=== PATIENT | male | born 2000 | race Caucasian/White ===

== ENCOUNTER 2021-05-23 09:30 | Inpatient (IN) | payer OTHER ==
[2021-05-23 10:36] LABS: ALBUMIN 4.4 g/dl (3.4-5.0); BILIRUBIN,TOTAL 0.8 mg/dl (0.2-1); CALCIUM 9.6 mg/dl (8.5-10); CREATININE 0.8 mg/dl (0.55-1.3); TOT PROT 7.2 g/dl (6.4-8.2)
[2021-05-23] MEDS ORDERED: LACTATED RINGERS SOLUTION 1,000 ML/1,000 ML INFUS.BAG IV STA (11:56)
[2021-05-23] MEDS ORDERED: LACTATED RINGERS SOLUTION 1000 ML INFUS.BAG IV ONE ×2 (13:08→15:00)
[2021-05-23] MEDS ORDERED: ACETAMINOPHEN 500 MG TABLET (FP) PO ONE (14:45)
[2021-05-23] MEDS ORDERED: ACETAMINOPHEN 325 MG TABLET (FP) ONE (14:47)
[2021-05-23] MEDS ORDERED: LACTATED RINGERS SOLUTION 1,000 ML/1,000 ML INFUS.BAG IV SCH ×2 (17:00→20:45)
[2021-05-23] MEDS ORDERED: LIDOCAINE HCL 2% (20ML MULTI-DOSE VIAL) ONE (20:24)
[2021-05-23 23:36] VITALS: BMI 33.4
[2021-05-24 09:30] LABS: CALCIUM 9.3 mg/dl (8.5-10); CREATININE 0.8 mg/dl (0.55-1.3)
[2021-05-24 09:36] LABS: BILIRUBIN,TOTAL 0.3 mg/dl (0.2-1); TOT PROT 6.5 g/dl (6.4-8.2)
[2021-05-24] MEDS ORDERED: SODIUM CHLORIDE 1,000 ML IV SCH (10:45)
[2021-05-24] MEDS: ENOXAPARIN NA (PORCINE) 40 MG/0.4 ML DISP.SYRIN SQ SCH (11:00)
[2021-05-24] MEDS: SODIUM CHLORIDE 1,000 ML IV SCH (11:10)
[2021-05-24 11:52] LABS: BASO % 0.9 % (0-2.0); EOS % 2.6 % (0-4.5); HEMATOCRIT 44.9 % (35.4-49); HEMOGLOBIN 14.9 GM/dL (11.7-16.9); LYMPH % 33.1 % (8-40); MCH 28.3 pg (25.7-33.7); MCHC 33.3 g/dl (32.0-35.9); MEAN CELL VOLUME 84.9 fl (80-96); MEAN PLT VOLUME 8.7 fl (7.5-11.1); MONO % 7.1 % (3.8-10.2); NEUT % 56.3 % (42.8-82.8); PLATELET COUNT 295 10^3/uL (134-434); RBC 5.29 M/mm3 (4.00-5.60); RDW 13.1 % (11.9-15.9); WHITE BLOOD COUNT 5.1 K/mm3 (4.0-10.0)
[2021-05-24 12:07] LABS: SARS-CoV-2 NAA Not Detected (Not Detected)
[2021-05-24 20:52] LABS: EPITHELIAL CELLS RARE /hpf
[2021-05-25] MEDS ORDERED: SODIUM CHLORIDE 500 ML IV STA (00:55)
[2021-05-25 09:29] LABS: ALBUMIN 3.7 g/dl (3.4-5.0); BILIRUBIN,TOTAL 0.5 mg/dl (0.2-1)
[2021-05-25] MEDS: ENOXAPARIN NA (PORCINE) 40 MG/0.4 ML DISP.SYRIN SQ SCH (10:15)
[2021-05-25] MEDS: SODIUM CHLORIDE 1,000 ML IV SCH (10:45)
[2021-05-25 13:10] LABS: CALCIUM 8.7 mg/dl (8.5-10); CREATININE 0.7 mg/dl (0.55-1.3); MAGNESIUM 1.7 mg/dL (1.8-2.4)
[2021-05-25] MEDS ORDERED: SODIUM CHLORIDE 0.9% 500 ML INFUS.BAG IV ONE (13:30)
[2021-05-25] MEDS ORDERED: MAGNESIUM 1GM/D5W 100ML - 100 ML IVPB IVPB ONE (13:45)
[2021-05-25 15:16] LABS: COCAINE, UR NEGATIVE (NEGATIVE); METHADONE, UR NEGATIVE (NEGATIVE); OPIATES, URI NEGATIVE (NEGATIVE); PHENCYCLIDINE,URINE NEGATIVE (NEGATIVE); URINE AMPHETAMINES NEGATIVE (NEGATIVE); URINE BARBITURATES NEGATIVE (NEGATIVE); URINE BENZODIAZEPINES NEGATIVE (NEGATIVE)
[2021-05-26 10:08] LABS: ALBUMIN 3.9 g/dl (3.4-5.0); BILIRUBIN,TOTAL 0.5 mg/dl (0.2-1); TOT PROT 6.6 g/dl (6.4-8.2)
[2021-05-26] MEDS: ENOXAPARIN NA (PORCINE) 40 MG/0.4 ML DISP.SYRIN SQ SCH (11:06)
[2021-05-26] MEDS ORDERED: MAGNESIUM OXIDE 400 MG TABLET (FP) PO ONE (11:33)
[2021-05-26] MEDS: SODIUM CHLORIDE 1,000 ML IV SCH (12:12)
[2021-05-27 06:20] VITALS: BP 128/81; PULSE 80; TEMP 97.8
[2021-05-27 07:57] LABS: ALBUMIN 3.9 g/dl (3.4-5.0); BILIRUBIN,TOTAL 0.5 mg/dl (0.2-1); CALCIUM 9.1 mg/dl (8.5-10); CREATININE 0.8 mg/dl (0.55-1.3); MAGNESIUM 1.7 mg/dL (1.8-2.4); TOT PROT 6.4 g/dl (6.4-8.2)
[2021-05-27] MEDS: SODIUM CHLORIDE 1,000 ML IV SCH (08:05)
[2021-05-27] MEDS: ENOXAPARIN NA (PORCINE) 40 MG/0.4 ML DISP.SYRIN SQ SCH (09:56)
== END 2021-05-27 11:57 | disposition home or self-care (01) | DRG 351 ==
LOC: FER 09:30 → EDBD 09:30 → FM/S 17:14
PROVIDERS: ADMIT Internal Medicine; ATTEND Nurse Practitioner Acute Care
DX: M62.82 Rhabdomyolysis (principal); R31.9 Hematuria, unspecified; R20.2 Paresthesia of skin; M79.601 Pain in right arm; M79.602 Pain in left arm
CPT/HCPCS: 36415; 80048; 80053; 80076; 80307; 81003; 81015; 82550; 82553; 83735; 83874; 85025; 87426; 99285-25; C9803; U0003; U0005

== ENCOUNTER 2022-03-14 21:00 | Observation (INO) | payer OTHER ==
[2022-03-14 22:39] LABS: HEMOGLOBIN 14.7 G/dL (11.7-16.9); MCH 29.4 pg (25.7-33.7); MCHC 35.1 g/dl (32.0-35.9); MEAN CELL VOLUME 83.7 fl (80-96); MEAN PLT VOLUME 8.1 fl (7.5-11.1); PLATELET COUNT 270.1 10^3/uL (134-434); RBC 5.02 10^6/uL (4.00-5.60); WHITE BLOOD COUNT 5.6 10^3/uL (4.0-10.8)
[2022-03-14 22:46] LABS: ALBUMIN 4.2 g/dl (3.4-5.0); BILIRUBIN,TOTAL 0.4 mg/dl (0.2-1); CALCIUM 9.4 mg/dl (8.5-10); TOT PROT 6.9 g/dl (6.4-8.2)
[2022-03-14] MEDS ORDERED: SODIUM CHLORIDE 1,000 ML IV STA (23:16)
[2022-03-14] MEDS ORDERED: SODIUM CHLORIDE 1,000 ML IV SCH ×3 (23:30→23:58)
[2022-03-15] MEDS ORDERED: ACETAMINOPHEN 1000 MG/100 ML BAG IVPB PRN (00:03)
[2022-03-15 02:53] VITALS: BMI 33.0
[2022-03-15 08:22] LABS: PH,URINE 6.5 (5.0-8.0); URINE APPEARANCE CLEAR; URINE BILIRUBIN NEGATIVE (NEGATIVE); URINE COLOR YELLOW; URINE GLUCOSE (UA) NEGATIVE (NEGATIVE); URINE KETONE NEGATIVE (NEGATIVE); URINE PROTEIN NEGATIVE (NEGATIVE)
[2022-03-15 08:23] LABS: URINE LEUK ESTERASE NEGATIVE (NEGATIVE); URINE NITRITE NEGATIVE (NEGATIVE); URINE UROBILINOGEN 0.2 mg/dL (0.2-1.0)
[2022-03-15 09:15] LABS: CALCIUM 8.7 mg/dl (8.5-10); CREATININE 0.8 mg/dl (0.55-1.3); MAGNESIUM 1.7 mg/dL (1.8-2.4)
[2022-03-15] MEDS ORDERED: SODIUM CHLORIDE 1,000 ML IV SCH (09:53)
[2022-03-15 14:41] VITALS: RESP 18
[2022-03-16 07:43] LABS: HEMATOCRIT 43.6 % (35.4-49); HEMOGLOBIN 14.8 G/dL (11.7-16.9); MCH 28.6 pg (25.7-33.7); MCHC 33.8 g/dl (32.0-35.9); MEAN CELL VOLUME 84.7 fl (80-96); PLATELET COUNT 267.3 10^3/uL (134-434); RBC 5.15 10^6/uL (4.00-5.60); RDW 14.3 % (11.9-15.9); WHITE BLOOD COUNT 6.6 10^3/uL (4.0-10.8)
[2022-03-16 08:11] LABS: ALBUMIN 3.8 g/dl (3.4-5.0); ALK PHOS 54 U/L (45-117); ANION GAP 3 MMOL/L (8-16); BILIRUBIN,TOTAL 0.5 mg/dl (0.2-1); CALCIUM 9.1 mg/dl (8.5-10); CHLORIDE 106 mmol/L (98-107); CO2 29 mmol/L (21-32); CREATININE 0.8 mg/dl (0.55-1.3); GLUCOSE,RANDOM 107 mg/dl (74-106); PHOSPHOROUS 4.9 mg/dl (2.5-4.9); SGOT/AST 43 U/L (15-37); SGPT/ALT 41 U/L (13-61); SODIUM 138 mmol/L (136-145); TOT PROT 6.4 g/dl (6.4-8.2)
[2022-03-16 09:40] VITALS: BP 122/58; PULSE 91; TEMP 98.3
[2022-03-16] MEDS ORDERED: ENOXAPARIN NA (PORCINE) 40 MG/0.4 ML DISP.SYRIN SQ SCH (10:00)
[2022-03-17] MEDS ORDERED: ACETAMINOPHEN 325 MG TABLET (FP) PO PRN (00:05)
== END 2022-03-16 10:26 | disposition home or self-care (01) ==
LOC: FER 21:00 → FM/S 23:57 → UNDOADMOB 03-15 02:11 → FM/S 03-16 07:53
PROVIDERS: ADMIT Internal Medicine; ATTEND Internal Medicine
PROC: 3E0337Z Introduction of Electrolytic and Water Balance Substance into Peripheral Vein, Percutaneous Approach (ICD-10-PCS; principal; 2022-03-14)
DX: M62.82 Rhabdomyolysis (principal); R10.9 Unspecified abdominal pain; E66.8 Other obesity; Z68.33 Body mass index [BMI] 33.0-33.9, adult
CPT/HCPCS: 36415; 80048; 80053; 81003; 82550; 82553; 83735; 84100; 85027; 93005; 96360; 96361; 99285-25; C9803-CS; G0378; U0003; U0005